=== PATIENT | female | born 1960 | race Caucasian/White ===

== ENCOUNTER → 2018-07-30 12:46 | Outpatient (CLI) | payer MEDICARE, SELFPAY ==
--- NOTE | 2018-07-30 | BRBX_PTH ---
PATIENT: LEONIDES RAMESH LOC: [facility] U#:[id number] AGE/SX: 65/F ROOM: RE07/30/[address]: Dr. Lino Dotson MD : 1960 BED: DIS: SPEC #: [id number] RECD: 07/30/18 13:54 STATUS: ABE JOSH #: [id number] FLORENCIA: 07/30/18 00:[address]: Lino Dotson DEPT: SURGICAL PATHOLOGY RECD BY: Fahad Molina Tissues: Left breast, NOS Procedures: Surgery Specimen Level IV HEADER OPERATION: Ultrasound-guided left breast needle core biopsy PRE-OP DIAGNOSIS: Abnormal mammogram/ultrasound TISSUE SUBMITTED: Left breast needle core biopsy ISCHEMIC TIME: 3 minutes MICROSCOPIC DIAGNOSIS Left breast, ultrasound-guided needle core biopsy: Invasive ductal carcinoma, nuclear grade 2 (0.9 cm in greatest length). See comment. DULCE:silvana 07/31/18 COMMENT Immunohistochemistry ([id number]) supports the above diagnosis. ER/KY/Tdr9uwk studies are being performed on sections of tumor and the results from this study will be reported separately ([id number]). Microcalcifications are noted both in invasive carcinoma and non-neoplastic tissue. This case was discussed with Dr. Dotson on 07/31/18. MICROSCOPIC DESCRIPTION Slides are reviewed. GROSS DESCRIPTION Received is one container labeled with the patient's name and not further designated. The specimen consists of two elongated fragments of harley-yellow fibroadipose tissue that in aggregate measure 1.5 x 0.3 x 0.1 cm. The entire specimen is submitted in one cassette. / SJ:rg 07/30/18 TC:0 CPT: 88346
--- NOTE | 2018-07-30 | IMM_PTH ---
PATIENT: LEONIDES RAMESH LOC: [facility] U#:[id number] AGE/SX: 65/F ROOM: RE07/30/[address]: Dr. Lino Dotson MD : 1960 BED: DIS: SPEC #: [id number] RECD: 07/31/18 14:21 STATUS: ABE REQ #: [id number] FLORENCIA: 07/30/18 00:[address]: Lino Dotson DEPT: IMMUNOHISTOCHEMISTRY RECD BY: Alem Martini Tissues: Left breast, NOS Procedures: CALPONIN-1 (add) CK5-6 (add) CK8 (add) E-CAD (add) HER2 MALA (add) KI-67 (add) P53 (add) MA (add) P40 (add) ER (initial) PHYSICIAN & INSTITUTION [place] [id number] SPECIMEN INFORMATION: Tissue Source: Left breast Clinical Info: Abnormal mammogram/ultrasound Specimen Number: [id number] CPT code: 85142, 27208 x6, 41004 x3 METHODOLOGY: Deparaffinized sections of prefer/formalin-fixed tissue or PAP/DQ stained slides are incubated with monoclonal/polyclonal antibodies/oligonucleotide probes. Localization is made via biotin free immunoperoxidase method. Appropriate controls are performed and reacted as expected. Results on target cell population are indicated in the following table: RESULTS: ANTIBODY / CLONE RESULT E-Cad (ECH-6) positive CK8 (54brbrW16) positive CK5-6 (D5 & 1684) negative Ki-67 (30-9) positive, low P53 (DO-7) negative P40 (BC28) negative Calponin-1 (IT382W) negative MORPHOMETRIC ANALYSIS ER (clone 6F11) >95%, moderate MA (clone 16/1E2) variable, 0 to 95%, moderate Her-2Neu (clone CB11) 3+ The prognostic test for HER2 is performed on formalin-fixed paraffin embedded tissue. A 3+ (positive) staining pattern is defined as intense, homogeneous, complete, circumferential membranous staining in >10% of contiguous tumor cells. A similar weak (2+) staining pattern is interpreted as equivocal. PATRICE follow-up testing is recommended for all equivocal cases. Positivity/negativity for ER/MA is reported if > or < 1% of the tumor cells are immuno- reactive, respectively. The ASCO/CAP criteria is used for scoring. Reference: Journal of Clinical Oncology, 2013; 31:1534-4629 & 2010; 16:3404-5551. Duration of fixation: __ Hrs; Sample Adequate: Yes. These assays have not been validated on decalcified tissues. Results should be interpreted with caution given the likelihood of false negativity on decalcified specimens. These tests were developed and their performance characteristics determined by [facility]. They may not have been cleared or approved by the U.S. Food and Drug Administration. The FDA has determined that such clearance or approval is not necessary. INTERPRETATION: Left breast, ultrasound-guided core biopsy: Invasive ductal carcinoma, nuclear grade 2. Positive for estrogen receptors (favorable prognostic indicator). Positive for progesterone receptors (favorable prognostic indicator). Positive for overexpression of IHZ9xnd. SJ:silvana 08/01/18
== END ==
PROVIDERS: Referring Provider Surgery; Visit Provider Surgery
DX: C50.912 Malignant neoplasm of unspecified site of left female breast (principal)
CPT/HCPCS: 88305; 88341; 88342

== ENCOUNTER 2018-08-06 11:23 | Day surgery (SDC) | payer MEDICARE, SELFPAY ==
[2018-08-06] VITALS (11 sets, daily range): BP systolic 112–176; BP diastolic 67–105; PULSE 89–102; RESP 16–18; TEMP 36.5–37.1; O2SAT 93–98; BMI 35.4; BMI 35.2
--- NOTE | 2018-08-06 | IMM_PTH ---
PATIENT: LEONIDES RAMESH [place] [facility] [id number] AGE/SX: 58/F ROOM: RE08/06/[address]: Dr. Lino Dotson MD : 1960 BED: DIS: 08/07/2018 SPEC #: [id number] RECD: 08/09/18 12:14 STATUS: ABE REQ #: [id number] FLORENCIA: 08/06/18 00:[address]: Lino Dotson DEPT: IMMUNOHISTOCHEMISTRY RECD BY: Alem Martini ENTERED: 08/09/18 12:20 SP TYPE: IMMUNO OTHR DR: Dr. Darby Smart MD Tissues: A - Axillary lymph node, NOS C - Skin of external ear, NOS D - Skin of forehead Procedures: DESMIN (initial) SMA (add) CEA (add) CK20 (add) CK7 (add) ANTIONE (add) ER (add) P53 (add) AL (add) SMM (add) FACTOR VIII (add) Pankeratin (add) GATA3 (add) P40 (add) CK7 (initial) NSE (add) S-100 (add) PHYSICIAN & INSTITUTION [place] [id number] SPECIMEN INFORMATION: Tissue Source: A - Left axillary sentinel lymph node, C - Right ear lesion, D - Forehead lipoma Clinical Info: Malignant neoplasm of UOQ left breast; right ear and forehead skin lesion Specimen Number: [id number] A1, A2, C, D CPT code: 69467 x3, 22808 x21 METHODOLOGY: Deparaffinized sections of prefer/formalin-fixed tissue or PAP/DQ stained slides are incubated with monoclonal/polyclonal antibodies/oligonucleotide probes. Localization is made via biotin free immunoperoxidase method. Appropriate controls are performed and reacted as expected. Results on target cell population are indicated in the following table: RESULTS: ANTIBODY / CLONE RESULT Block A1 CK7 (OV-TL12/30) positive AE1-3 (AE1/AE3/PCK26) positive Block A2 CK7 (OV-TL12/30) negative AE1-3 (AE1/AE3/PCK26) negative Block C CK7 (OV-TL12/30) positive P40 (BC28) positive Actin (1A4) positive ANTIONE (E29) positive CEA (11-7/TF-3HB-1) positive S-100 (4C4.9) positive, rare cells CK20 (KS20.8) negative GATA3 (L50-823) positive ER (6F11) negative AL (1E2) negative Block D AE1-3 (AE1/AE3/PCK26) negative S-100 (4C4.9) negative Actin (1A4) negative P40 (BC28) negative Myosin (simms1) negative Desmin (CE-R-11) negative Factor VIII (R Ag) negative NSE Neuron Specific Enolase negative ANTIONE (E29) negative P53 (DO-7) negative These tests were developed and their performance characteristics determined by [facility]. They may not have been cleared or approved by the U.S. Food and Drug Administration. The FDA has determined that such clearance or approval is not necessary. INTERPRETATION: A. Left axillary sentinel lymph node, biopsy: One out of one lymph node with macrometastatic carcinoma (6.5 mm). C. 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 AM:silvana 08/13/18 Case has been reviewed in consultation with Dr. Bailon who concurs with the above diagnosis. IDC:SJ
--- NOTE | 2018-08-06 | AXNB_PTH ---
PATIENT: LEONIDES RAMESH [place] [facility] [id number] AGE/SX: 58/F ROOM: RE08/06/[address]: Dr. Lino Dotson MD : 1960 BED: DIS: 08/07/2018 SPEC #: [id number] RECD: 08/06/18 15:28 STATUS: ABE REJorge #: [id number] FLORENCIA: 08/06/18 00:[address]: Lino Dotson DEPT: SURGICAL PATHOLOGY RECD BY: Alem Martini ENTERED: 08/06/18 15:44 SP TYPE: AX NODE BX OTHR DR: Dr. Darby Smart MD Tissues: A - Axillary lymph node, NOS B - Left breast, NOS C - Skin of external ear, NOS D - Forehead, NOS Procedures: Frozen Section (charge) Surgery Specimen Level III Surgery Specimen Level IV Surgery Specimen Level V Frozen (no charge) HEADER OPERATION: Left breast lumpectomy with axillary sentinel lymph node PRE-OP DIAGNOSIS: Malignant neoplasm of upper outer quadrant left breast, ER positive; skin lesion of right ear; forehead skin lesion TISSUE SUBMITTED: A - Left axillary sentinel lymph node to pathology for frozen section, B - Left breast mass, wire - lateral, single tail - superior, double tail - cranial, to mammography and pathology for margins, C - Right ear lesion, D - Forehead lipoma FROZEN SECTION DIAGNOSIS A. Left axillary sentinel lymph node, biopsy: One lymph node, positive for metastatic carcinoma. SJ:silvana 08/06/18 MICROSCOPIC DIAGNOSIS A. Left axillary sentinel lymph node, biopsy: One lymph node, positive for macrometastatic carcinoma. B. Left breast mass, lumpectomy: Invasive ductal carcinoma. See cancer checklist below. C. Right ear lesion, excisional biopsy: Consistent with cylindroma. See comment. D. Soft tissue lesion of forehead, excision: Consistent with fibrolipoma. See comment. AM:silvana 08/13/18 COMMENT B. INVASIVE BREAST CANCER SUMMARY: Specimen - excision with wire guidance Procedure - partial left breast Lymph node sampling - See specimen A Specimen integrity - single intact specimen Specimen size - 9 x 8 x 4 cm Specimen laterality - left breast Tumor site - left breast Tumor size - invasive tumor measures 1.5 x 1 x 1 cm Tumor focality - single focus of invasive carcinoma Macroscopic and Microscopic extent of tumor: Skin - not present Nipple - not present Skeletal muscle - not present Histologic type of invasive carcinoma - invasive ductal carcinoma Histologic Grade (Kerrie grade): Glandular/tubular differentiation - score 3 Nuclear pleomorphism - score 2 Mitotic count - score 1 Overall grade - 2 (score of 6) Margins - Margins uninvolved by invasive carcinoma. Distance from closest margin (anterior margin) - 3.5 mm Lymph-Vascular invasion - not identified Dermal lymph-vascular invasion - not applicable Ductal carcinoma in situ: Estimated size - 3 x 2 x 1 mm Number of blocks with DCIS - 6 out of 12 Architectural pattern - cribriform, solid and micropapillary Nuclear grade - grade 2 Necrosis - not present Lobular carcinoma in situ - not present. Lymph nodes - see specimen A Number of sentinel lymph nodes examined - 1 Total number of lymph nodes examined (sentinel and nonsentinel) - 1 Number of lymph nodes with macrometastases - 1 Microcalcifications present in both carcinoma and non-neoplastic tissue. Treatment effect - unknown Additional pathologic findings - biopsy cavity, fibrocystic change and focal atypical intraductal hyperplasia. Ancillary studies - previously performed on section of tumor ([id number] / [id number]). ER - >95%, moderate NC - variable, 0-95%, moderate Her2 ramandeep - 2+ by IHC PATHOLOGIC STAGE: pT1c N1a Mx The above summary is in compliance with [employer] [place] [employer] (CAP) Cancer Protocols Checklist and [place] Joint Committee on Cancer (AJCC), Staging Manual, 8th Ed. A. The macrometastatic carcinoma measures 6.5 mm in greatest dimension. No extranodal extension of tumor is seen. C & D. Immunohistochemistry ([id number]) supports the above diagnosis. Case has been reviewed in consultation with Dr. Bailon who concurs with the above diagnosis. IDC:SJ MICROSCOPIC DESCRIPTION Slides are reviewed. GROSS DESCRIPTION A - Received fresh for frozen section diagnosis labeled with the patient's name is a specimen designated left axillary sentinel lymph node. The specimen consists of a piece of harley soft tissue consistent with lymph node measuring 2 x 1.5 x 1 cm. The specimen is bisected and submitted entirely for frozen section diagnosis in one cassette. / SJ: 08/06/18 B - Received in fresh for intraoperative consultation labeled with the patient's name and designated left breast mass. The specimen consists of a piece of fibroadipose tissue with needle localization measuring 9 x 8 x 4 cm. A piece of skin is noted laterally measuring 3 x 1.5 cm. The specimen is oriented as follows: wire - lateral, single tail - superior, double tail - cranial. The specimen is inked as follows: anterior - yellow, posterior - black, superior - blue, inferior - green, medial - red and lateral - orange. Serial sections reveal a harley, indurated mass with central biopsy cavity measuring 1.5 x 1 x 1 cm. This mass is 0.5 cm away from the closest posterior margin. The specimen gross is reviewed along with surgeon in person. Sections of the rest of the specimen reveal harley-yellow adipose cut surfaces mixed with harley-white fibrous area. Focal biopsy cavity is also noted adjacent to the mass. Bushel Worker sections are submitted in 12 cassettes as follows: 1 - skin at the lateral margin and perpendicular anterior and medial margins, 2 - perpendicular superior and inferior margins, 3 & 4 - tumor with adjacent closest posterior margin, 5-10 - indurated area adjacent to the tumor including biopsy cavity, 11 & 12 - patient support representative sections away from the tumor. Sections are submitted after additional fixation. / SJ: 08/07/18 C - Received in fixative is one container labeled with the patient's name and designated right ear lesion. The specimen consists of a piece of skin with underlying tissue measuring 1.5 x 0.7 cm and up to 1.3 cm in thickness. The specimen is partially disrupted. The specimen is inked, serially sectioned and submitted entirely in one cassette. / SJ: 08/07/18 D - Received in fixative is one container labeled with the patient's name and designated forehead lipoma. The specimen consists of a piece of harley-yellow adipose tissue measuring 2 x 1.5 x 1 cm. The specimen is inked, serially sectioned and reveal harley, solid cut surfaces. The entire specimen is submitted in one cassette. / DULCE:silvana 08/07/18 TC:0 CPT: 19460 x2, 84559, 44015, 81198, 77871
--- NOTE | 2018-08-06 11:35 | NM_ITS ---
PROCEDURE: NUCLEAR MEDICINE Injection Starrucca Node - LEFT breast(s). REASON FOR EXAM: Female, 58 years old. Left breast cancer. TECHNIQUE: Starrucca node localization using radionuclide methods of the LEFT breast(s) was performed following subcutaneous administration of 1.1 mCi of of sulfur colloid Tc-99m. FINDINGS: 1.1 mCi of tiny segment labeled sulfur colloid was injected in 4 equal aliquots in the mid lateral aspect of the left breast. NM/Lymph Node Injection Only IMPRESSION: Subcutaneous injection of 1.1 mCi of technetium labeled sulfur colloid for sentinel node imaging. Electronically Signed: Mata Toro MD at 12:28 EDT Tel [phone], Service support ,
--- NOTE | 2018-08-06 12:00 | BI_ITS ---
SURGICAL BREAST SPECIMEN RADIOGRAPH CLINICAL: Document presence of tissue clip marker in biopsy specimen. FINDINGS: Specimen shows presence of tissue clip marker. Electronically Signed: Mata Toro MD at 8:05 EDT Tel [phone], Service support , BI/Breast Biopsy Specimen
[2018-08-06 12:05] LABS: Bedside Glucose 146 mg/dL (70-110)
[2018-08-06] MEDS: Cefazolin 2 GM in 0.9% Normal Saline 100 ML IV (14:41)
[2018-08-06] MEDS: Isosulfan Blue 1% 5 ML Vial (14:45)
[2018-08-06] MEDS: Bupivacaine Mpf 0.5% 30 ML VIAL ×2 (16:00→16:50)
--- NOTE | 2018-08-06 17:07 | OP.PCM_ITS ---
Report of Operation Date of Procedure: 08/06/18 Pre-Operative Diagnosis: left invasive ductal breast cancer, forhead and right ear lesions Post-Operative Diagnosis: left invasive ductal breast cancer, positive SLNBx, neg lumpectomy margins, forehead lipoma - 2cm and right posterior ear lesion - 2cm Surgery/Procedure Performed:: left stereotactic needle localization lumpectomy, radiotracer and lymphazurin injection, sentinel lymph node biopsy, excision of forehead lipoma, excision of right ear lesion, Description of Surgical Findings:: as above script reader: Ray Julian Type of Anesthesia:: General Anesthesiologist: Tomasz Baker ASA2 Specimen's removed: left SLNBx, left lumpectomy, forehead lipoma, right ear subcutaneous lesion Drains: none Estimated Blood Loss (mL): 75 Fluids Replaced: 1000 Description of Procedure: The patient was brought to the stereotactic suite. Her left breast was positioned in the 2 lateral to medial approach in the [place] stereotactic table. Mammogram image demonstrated the clip to be nicely centered. Stereotactic images were obtained. Planned placement of the wire was marked and an additional 15 mm of depth added to the prescribed depth. The breast was then cleaned with Betadine. Local anesthetic was injected in the breast and a 15 Kopan's wire was inserted to the prescribed depth. Stereotactic images demonstrated good positioning of the wire. The wire was deployed as an needle was withdrawn. Stereotactic images demonstrated good positioning of the wire. The breast was marked compression the wire cut to length and taped. CC and MLO views were then obtained. The patient had previously undergone injection of radiotracer in the radiology department. The patient was then brought to the operative suite. Sign was performed verifying patient, site, position, SCIP antibiotic prophylaxis-2 g of Ancef and DVT prophylaxis with SCDs. Following an LMA anesthesia, 5 cc of a 50-50 mixture of lymphazurin blue and normal saline was injected into sappey's plexus. The breast was then massaged. Evaluation of the axilla with the neoprobe demonstrated an area of activity in the low axillain the mid axillary area. This site was marked. Ultrasound was also used to evaluate the area of the tumor. The mass on ultrasound was noted to be approximately 1-1/2 cm deep to the skin approximately two thirds [address] the way deep towards the pectoralis muscle and the body of the tumor seemed somewhat lateral to the 3 oclock position. This was marked on the skin site. The patient?s left breast, axilla right arm and neck were then prepped and draped in the usual fashion. Timeout was performed verifying patient, site, position. Local anesthetic was injected at the marked site and the incision made in the low anterior axilla. Dissection carried down through subcutaneous tissues. A blue lymphatic duct was identified and tracked back to the sentinel lymph node which turned nicely blue. This node was then dissected free from the surrounding structures. After was removed, it was evaluated with the neoprobe and contained approximately 250 counts. The neoprobe was then used to assess the axilla through the incision. No additional lymph nodes were palpated. . There was good hemostasis in the small sentinel node dissection area. Subcutaneous tissues closed with interrupted 3-0 Vicryl suture. Skin was closed with a running 4-0 Biosyn subcuticular suture. Verbal report from the pathologist demonstrated positive left sentinel lymph node. Attention was then turned to the lumpectomy specimen. The wire entered the breast at the 3 position. An elliptical incision was made and dissection carried down to subcutaneous breast tissue and then flared out such that a good margin would be obtained in all axes. The breast tissue was taken down to the pectoralis fascia. When the specimen was removed. The wire came from the superficial cranial site. A solitary suture was placed at the superficial and a double tail suture was placed along the cranial aspect of the specimen. The specimen was oriented on a radiographic plate and sent for specimen radiograph. While we?re awaiting specimen radiograph, the cavity was irrigated with sterile water and aspirated. There was noted to be good hemostasis. 4 medium clips were placed at the deep cavity margins and 4 small clips at the superficial cavity margins oriented the cavity for future radiation treatment. Subcutaneous breast tissue closed with interrupted 3-0 Vicryl suture. Skin was closed with a running 4-0 Biosyn subcuticular suture. Specimen radiograph demonstrated good position of the clip relative to the biopsy site. The specimen was then brought to the pathology department. I oriented the specimen with the pathologist. Gross margins were examined and felt to be at least 0.5 cm. Given this, Dermabond was applied to the skin. new set of instruments was then opened up and the patient's forehead and right ear were prepped and draped in the usual fashion. An elliptical incision was ma de overlying was felt initially to be likely sebaceous cyst as dissection was carried down the patient was noted to have a lipoma below the aponeurosis. The aponeurosis was opened in the midline for hit and the lipoma dissected on its entirety and sent to pathology. Deep tissue was closed with 4-0 Vicryl suture skin was closed with interrupted 6-0 nylon simple sutures. Next attention was placed to the right ear. On the posterior aspect of the radial was an exophytic lesion was felt to be mostly subcutaneous. An elliptical incision was made near the base of the mass and this was dissected as entirety off the underlying posterior structures. Skin was then closed with 5-0 nylon sutures. There was some bleeding from one of the apexes which was controlled with pressure. The patient was awakened and brought to recovery in stable condition. - Admit VTE Documentation VTE Present on Admission: No VTE Mechan Device Prophylaxis: SCD's VTE Pharm Prophylaxis ordered?: No
[2018-08-06 18:05] LABS: Bedside Glucose 132 mg/dL (70-110)
--- NOTE | 2018-08-06 19:00 | NURSING ---
did not have flu vaccine and refuses to get one.
[2018-08-06] MEDS: oxyCODONE 5 MG Tablet PO (20:36)
[2018-08-06] MEDS: Lactated Ringers 1,000 ML 60 ML IV (20:38)
[2018-08-06] MEDS: Ibuprofen 400 MG Tablet PO (23:07)
[2018-08-07 02:28] VITALS: BP 125/61; PULSE 78; RESP 18; TEMP 36.6; O2SAT 94
[2018-08-07] MEDS: oxyCODONE 5 MG Tablet PO ×2 (02:28→08:57)
--- NOTE | 2018-08-07 06:15 | DCINST_ITS ---
Discharge Diet: No Restrictions Discharge Activity: May Not Drive - for 2-3 days or while taking narcotic pain meds. May shower in (days): 1 Lifting Restrictions: 10 pounds for 1 week. Call your doctor if your incision/area has: Continuous Slow Oozing, Sudden In creased Bleeding Call your doctor if you observe: Fever of 101 or Higher Suture Line Care: Avoid Pulling/Pushing, Avoid Pinching/Bending Remove Dressing in (days):: 1 - Remove bulky dressing tomorrow. May leave any opsite dressing for 3-4 days. Keep dressing in place until your follow-up appointment. Additional Dressing/Incision Instructions:: Remove bulky dressing tomorrow. May leave any opsite dressing for 3-4 days. Keep dressing in place until your follow-up appointment. Allergies/Adverse Reactions: Allergies No Known Allergies Allergy (Unverified 08/03/18 08:39) Medications to take at Discharge sertraline 100 mg tablet 100 mg PO QDAY 01/10/18 Calcium Citrate/Magnesium/D3 [Calcium Citrate Chewable Wafer] 1 tab PO DAILY 08/03/18 Cinnamon Bark [Cinnamon] 500 mg PO DAILY 08/03/18 Glimepiride [Amaryl] 1 mg PO BID 08/03/18 Ibuprofen [Motrin] 400 mg PO Q4H PRN PRN tablet 08/07/18 Oxycodone [Oxyir] 5 - 10 mg PO Q4H PRN PRN 7 Days #12 tab 08/07/18 The following prescriptions were given: Oxycodone [Oxyir] 5 - 10 mg PO Q4H PRN PRN 7 Days #12 tab PRN Reason: Pain Primary Care Physician: Darby Smart MD [Primary Care Provider] - Please Follow Up With: Lino Dotson MD When: next monday
--- NOTE | 2018-08-07 08:41 | NURSING ---
Was asked to see patient to discuss the Reach to Recovery program. Since there is no longer a local Reach program, gave patient the [employer] information. Pt asked about local support groups. gave patient the list of support group dates for the rest of this year. the lumpectomy teaching packet was also given to the patient. dressings to the left lateral breast and left axilla area are dry and intact. small amount of bruising noted. pt denies further questions at this time.
[2018-08-07 08:47] VITALS: BP 114/64; PULSE 73; RESP 18; TEMP 36.8; O2SAT 99
== END 2018-08-07 09:05 | disposition home or self-care (01) ==
LOC: SDC 11:25 → AC 11:27 → MS3 15:34
PROVIDERS: Family Provider Internal Medicine; PCP Internal Medicine; Referring Provider Surgery; Visit Provider Surgery
PROC: (CPT 19301; principal; 2018-08-06 14:15)
DX: C50.412 Malignant neoplasm of upper-outer quadrant of left female breast (principal); C77.3 Secondary and unspecified malignant neoplasm of axilla and upper limb lymph nodes; D17.0 Benign lipomatous neoplasm of skin and subcutaneous tissue of head, face and neck; E78.00 Pure hypercholesterolemia, unspecified; E11.9 Type 2 diabetes mellitus without complications; Z17.0 Estrogen receptor positive status [ER+]
CPT/HCPCS: 00400; 11442; 19301; 38525; 69100; 19281; 38792; 76098; 82962; 88304; 88305; 88307; 88331; 88341; 88342; A9541; J7120; J2405; J3490; Q9968

== ENCOUNTER → 2025-06-20 | Outpatient (CLI) | payer MEDICARE, SELFPAY ==
--- NOTE | 2025-06-20 08:07 | US_ITS ---
PROCEDURE: ABD LIMITED W/ ELASTOGRAPHY REASON FOR EXAM: HEPATIC STEATOSIS/RUQ PAIN COMPARISON: None. TECHNIQUE: Procedure Code: [id number] Modality: US Procedure: ABD LIMITED W/ ELASTOGRAPHY Right upper quadrant abdominal ultrasound. [facility] ElastQ Imaging shear wave elastography for non-invasive assessment of liver tissue stiffness. [facility]iola EPIQ Elite. FINDINGS: LIVER: Size: Unremarkable Length: 16.2 cm Echotexture: Diffusely echogenic suggesting fatty infiltration Contour: Normal Lesions: None identified Elastography: EQI Med: 9.8 kPa EQI Med Perico: 1.79 m/s IQR/Med: 15.1 %* GALLBLADDER: Surgically absent. COMMON BILE DUCT: Normal measuring 5.6 mm . PANCREAS: Normal Visualized portions of the right kidney are unremarkable. No right upper quadrant ascites. US/ABD Limited w/ Elastography IMPRESSION: Moderate hepatic fibrosis. Fatty infiltration of the liver. Reference Values: SRU <1.37 m/s (5.7kPa): No to mild fibrosis 1.37 m/s - 2.2 m/s: Moderate to severe fibrosis >2.2 m/s (15kPa): Significant fibrosis / cirrhosis METAVIR Score F2 or higher: 1.34 m/s (5.7kPa) F3 or higher: 1.55 m/s (7.3kPa) F4: 1.80 m/s (10kPa) * If the IQR/Med is >30%, the variance in the measurements is a large and the a ccuracy of the measurement may be in question. Reading Location: [id number]
== END | disposition home or self-care (01) ==
PROVIDERS: PCP Registered Nurse; Referring Provider Registered Nurse; Visit Provider Registered Nurse
DX: K76.0 Fatty (change of) liver, not elsewhere classified (principal); R10.11 Right upper quadrant pain
CPT/HCPCS: 76705; 76981

== ENCOUNTER 2025-08-13 12:30 | Outpatient (RCR) | payer MEDICARE, SELFPAY ==
--- NOTE | 2025-06-12 10:12 | HP.OTEVAL ---
Patient's Visit Information Visit Information Visit Information: LEONIDES RAMESH is a 64 year old F, referred to Occupational Therapy by RAIN Hardwick, with a diagnosis of L hand non displaced metacarpal fx of neck and base. Date of Evaluation: 06/12/25 Occupational Therapist: Lali Hampton Subjective Subjective: this 64 year old female arrives with dx of L hand 4th metacarpal nondisplaced neck and base fracture. Pt states she fell about 7 weeks ago injuring finger. Pt has been wearing brace on L hand states she has now come out of brace to use hand per physician request after last follow up appointment. At follow up appointment x ray complete and reports good healing. Pt does state since coming out of orthosis she has been getting a clicking sensation of base of P1 with movement that is painful. Pt is R hand dominant. Pt is now retired. She enjoys being with people being social. pt main concerns are ROM, strength, pain and decreased functional use of L hand. Pain L D4: Current Pain Intensity: 4 Pain Intensity Range: 5 Objective Objective/Observation: pt arrives no brace slight bruising at head of metacarpal base of P1 ROM Wrist: L 45/45 R 55/45 MP: L D4 45 R D4 80 PIP: L D4 65 R D4 95 DIP: L D4 50 R D4 60 Strength Research Instrumentation Technician: R 45 Lateral Pinch: R 8 Tripod Pinch: R 8 Strength Comments: to assess L strength at later date once healed Edema Proximal Phalanx: L 20 cm R 19.5 cm Sensation Sensation Comments: numbness and tingling reports in L hand D4 and D3 as well as dorsum of hand with use Quick DASH-Disab of Arm,Shoulder& Hand Quick DASH Score: 81.8175 Goals Goal:: pt will improve L hand traffic superintendent strength equal to or greater than non affected UE for return to PLOF (wait until 8 weeks if healed) Pt will improve L hand lateral and tripod pinch strength equal to or greater than non affected UE in order to return to PLOF (wait until 8 weeks if healed) Goal:: pt will demonstrate ROM equal to non affected UE in order to return to day to day functional tasks Goal:: pt will report pain of 1/10 or less with functional use of L hand for return to PLOF Goal:: pt will measure 19.5 cm or less at MCP of L hand to decrease swelling and promote proper ROM Goal:: pt will demo/ verbalize 100% accuracy in proper joint positioning and protection with return to activity by discharge Goal:: pt will improve quick dash score by 15 points or more (81.81) in order to improve functional use of L UE for return to PLOF Rehabilitation General Assessment: This 64 year old female arrives with dx of L D4 metacarpal fracture of neck and base nondisplaced. Pt presents with pain, decreased ROM, swelling, anticipated decreased strength as well as decreased functional use impacting day to day tasks. Pt would benefit from OT services 1-2x a week for 4-6 weeks for return to functional tasks at PLOF. education provided this date on AROM exercises to get started as well as edema management techniques. Rehabilitation Potential: Good Anticipated Interventions Anticipated Interventions: A/AAROM/PROM, Strengthening, Edema Control, Triggerpoint Release, Modalities, Education re Diagnosis and Home Program Visit Plan Frequency: 1-2x /Week Duration: 4-6 Weeks General Plan: AROM/AAROM/PROM strengthening (8 weeks if healed) edema management return to functional use TEXT: Thank you for the opportunity to evaluate your patient. For Medicare and Medicare HMO plans, please review the plan of care and approve it. It will need to be FAXED BACK to us at [phone] for Medicare purposes. Please let me know if there are questions or concerns regarding this plan of care. Physician Signature: Date:
--- NOTE | 2025-07-15 09:06 | OTREVAL_ITS ---
Re-Evaluation Intro: RAIN Hardwick, It has been my pleasure to treat LEONIDES RAMESH over the last 8 visits for L hand non displaced metacarpal fx of neck and base. Please see the progress note below for an update on the occupational therapy plan of care! Subjective Subjective: pt arrives doing well no new concerns did go to see doctor approx 3 weeks ago and states she is healing well overall today last covered session update this date to try and get more visits for pt Objective Objective/Function: additional visits would be beneficial for pt to improve pts strength-- pt also starting to demo slight swan neck deformity at digit would benefit from possible splinting and exercise to offset and prevent. 4th digit D4 MP 0/65 PIP 0/65 DIP -20/60 5th digit D5 MP 0/65 PIP 0/75 DIP 0/70 certified hyperbaric technologist L hand 5# R 45# lateral pinch L 5# R 15# tripod pinch L 3# R 10# L hand 20 cm R 19 cm Plan Plan Frequency: 1-2x /Week Duration: 4 Weeks Visits in this POC: 8 Plan: check approval on visits -04/15 approved visits Goals Goals Patient Goals: Regain Strength, Decrease Pain, Decrease Swelling/Stiffness, Use Hand/Wrist/Arm Normally Again, Decrease Tingling/Numbness, Increase ROM, Be More Independent in ADLS, Resume Former Household Responsibilities (Cooking,Cleaning,Yard, etc.) and Resume Hobbies Goal:: pt will improve L hand certified hyperbaric technologist strength equal to or greater than non affected UE for return to PLOF (wait until 8 weeks if healed) progressing Pt will improve L hand lateral and tripod pinch strength equal to or greater than non affected UE in order to return to PLOF (wait until 8 weeks if healed) progressing Goal:: pt will demonstrate ROM equal to non affected UE in order to return to day to day functional tasks progressing Goal:: pt will report pain of 1/10 or less with functional use of L hand for return to PLOF progressing Goal:: pt will measure 19.5 cm or less at MCP of L hand to decrease swelling and promote proper ROM progressing Goal:: pt will demo/ verbalize 100% accuracy in proper joint positioning and protection with return to activity by discharge Goal:: pt will improve quick dash score by 15 points or more (81.81) in order to improve functional use of L UE for return to PLOF Anticipated Interventions Anticipated Interventions Anticipated Interventions: A/AAROM/PROM, Strengthening, Edema Control, Triggerpoint Release, Modalities, Education re Diagnosis and Home Program Re-Evaluation Ending Re-evaluation ending: Please do not hesitate to contact me at [phone] by phone or if you have questions or concerns regarding this new plan of care! Sincerely, Lali Hampton
--- NOTE | 2025-08-13 13:06 | HP.OTDCSUM_ITS ---
Discharge Summary D/C Summary: It has been my pleasure to treat LEONIDES RAMESH under orders from RAIN Hardwick, for the diagnosis of L hand non displaced metacarpal fx of neck and base for a total of 3 visit(s). Please see the following information for a summary of their discharge status. Overall Improvement % Improvement: 85 Objective Objective/Function: Today last session insurance will cover measurements complet e. pt has made progress in her strength and functional use of hand pt also does demonstrate improvements in swelling of L hand. pt does still continue to lack full composite fist of L hand and has pain at times with use of L hand. L hand 15# R hand 45# L lateral pinch 8i# tripod pinch 5# MCP 19.5 cm Goals Patient Goals: Regain Strength, Decrease Pain, Decrease Swelling/Stiffness, Use Hand/Wrist/Arm Normally Again, Decrease Tingling/Numbness, Increase ROM, Be More Independent in ADLS, Resume Former Household Responsibilities (Cooking,Leandro aning,Yard, etc.) and Resume Hobbies Goal:: pt will improve L hand director of litigation strength equal to or greater than non affected UE for return to PLOF (wait until 8 weeks if healed) 08/13/25: 15# not met however progressing Pt will improve L hand lateral and tripod pinch strength equal to or greater than non affected UE in order to return to PLOF (wait until 8 weeks if healed) 08/13/25: lateral L 7# R 12# not met tripod L 5# R 12# not met is progressing Goal:: pt will demonstrate ROM equal to non affected UE in order to return to day to day functional tasks pt does demo increased difficulty with making full composite fist she is 1" from palm of hand RF Goal:: pt will report pain of 1/10 or less with functional use of L hand for return to PLOF 08/13/25: at rest 0-1/10 when using it 3-4/10 not met Goal:: pt will measure 19.5 cm or less at MCP of L hand to decrease swelling and promote proper ROM 08/13/25: L hand 19.5 cm goal met Goal:: pt will demo/ verbalize 100% accuracy in proper joint positioning and protection with return to activity by discharge goal met Goal:: pt will improve quick dash score by 15 points or more (81.81) in order to improve functional use of L UE for return to PLOF Plan Plan: check approval on visits -04/15 approved visits D/C Information Discharge Comments: This 65 year old female arrives with L hand fracture. Pt seen for improved ROM decreased swelling improved functional as well as strength. today last date insurance approves. OT provided exercises to perform at home to continue to progress in strength and ROM. discharge at this time. d/c sentence: If there are questions or concerns regarding this patient's occupational therapy, please fell free to call me at [phone]. Thank you for the referral of this patient. Sincerely, Lali Hampton
== END 2025-08-13 19:00 | disposition home or self-care (01) ==
LOC: OT 12:30
PROVIDERS: PCP Internal Medicine
DX: S62.365D Nondisplaced fracture of neck of fourth metacarpal bone, left hand, subsequent encounter for fracture with routine healing (principal); S62.345D Nondisplaced fracture of base of fourth metacarpal bone, left hand, subsequent encounter for fracture with routine healing
CPT/HCPCS: 97035; 97110; 97166; 97530